=== PATIENT | female | born 1995 | race Caucasian/White ===

== ENCOUNTER 2018-09-01 00:59 | Emergency (ER) | payer MEDICAID ==
[~2018-09-01] VITALS: Ht 152.4 cm; Wt 63.0 kg
[2018-09-01 01:25] VITALS: BP 126/56
== END 2018-09-01 05:00 | disposition left against medical advice (07) ==
LOC: ER 04:49
DX: Z53.21 Procedure and treatment not carried out due to patient leaving prior to being seen by health care provider (principal)